=== PATIENT | female | born 1945 | race Caucasian/White ===

== ENCOUNTER 2017-09-14 22:44 | Inpatient (IN) | payer OTHER ==
--- NOTE | 2017-09-14 23:16 | EDPHY ---
H & P Stated Complaint: ONGOING ABD PAIN,GAS PAIN, CONSTIPATION. BEEN WORKED UP IN PAST Time Seen by Provider: 09/14/17 22:56 HPI/ROS: Chief Complaint: Abdominal pain HPI: 71-year-old woman is presenting with worsening abdominal pain over the last 2 days. Patient states that she has been having right upper quadrant abdominal pain for the last 3 months which has been worked up extensively by her primary care physician including CT scans, ultrasounds and lab tests. They have been unable to identify a cause of her pain but she states that has been progressively improving and she did not have any discomfort a week ago. For the last couple days she has been having worsening abdominal pain, primarily in the lower abdomen with some radiation to the right upper quadrant. She has had some nausea but no vomiting. She states she feels like croupy gas pains and she has been passing some gas but feels like she is not passing enough. She has also been constipated and having firm pebbly stools which is not new for her. She does have a history of abdominal surgery for a uterine fibroid. Denies any fevers or chills. No chest pain shortness of breath. No urinary urgency or frequency. At worst pain is a 7/10. It comes in waves. ROS: 10 point Review of Systems is negative except as noted in the HPI. PMH: Breast cancer, uterine fibroid surgery Social History: No smoking, no alcohol, no recreational drug use Family History: non-contributory Physical Exam: Gen: Awake, Alert, No Distress HEENT: Nose: no rhinorrhea Eyes: PERRLA, EOMI Mouth: Moist mucosa Neck: Supple, no JVD Chest: nontender, lungs clear to auscultation Heart: S1, S2 normal, no murmur Abd: Soft, moderate left upper , right upper and right lower quadrant tenderness , no guarding Back: no CVA tenderness, no midline tenderness Ext: no edema, non-tender Skin: no rash Neuro: CN II-XII intact, Sensation grossly intact, Strength 5/5 in bilateral upper and lower extremities - Personal History Current Tetanus/Diphtheria Vaccine: Yes Current Tetanus Diphtheria and Acellular Pertussis (TDAP): Yes - Medical/Surgical History Hx Asthma: No Hx Chronic Respiratory Disease: No Hx Diabetes: No Hx Cardiac Disease: No Hx Renal Disease: No Hx Cirrhosis: No Hx Alcoholism: No Hx HIV/AIDS: No Hx Splenectomy or Spleen Trauma: No Other PMH: BREAST CA, - Social History Smoking Status: Never smoked Constitutional: Initial Vital Signs Temperature (C) 36.9 C 09/14/17 22:47 Heart Rate 73 09/14/17 22:47 Respiratory Rate 16 09/14/17 22:47 Blood Pressure 164/60 H 09/14/17 22:47 O2 Sat (%) 96 09/14/17 22:47 O2 Delivery Mode Room Air Allergies/Adverse Reactions: penicillamine Allergy (Verified 09/14/17 22:53) Sulfa (Sulfonamide Antibiotics) Allergy (Verified 09/14/17 22:53) Home Medications: Medication Instructions Recorded Herbals/Supplements -Info Only 09/14/17 Levothyroxine Sodium [Tirosint] 70 mcg PO DAILY 09/14/17 Multivitamins [Multivitamin (*)] 09/14/17 Medical Decision Making - Diagnostics Imaging Results: CT scan of the abdomen pelvis shows a partial large bowel obstruction with a left lower quadrant mass with an apple-core appearance. There is a transition point in the distal transverse colon in the left lower quadrant. Possible that there is significant wall thickening and edema in loops of large bowel with some adjacent fat stranding. ED Course/Re-evaluation: CT scan results noted. I discussed with Dr. Yeboah, general surgery. She will consult on the patient morning. She is requesting the patient be admitted to Internal Medicine. I have discussed with Dr. Meyers. He will admit to his service for further care. - Data Points Laboratory Results: Laboratory Results 09/14/17 23:20 09/14/17 23:20 09/14/17 09/14/17 09/14/17 23:20 23:20 23:20 WBC 9.66 10^3/uL H 10^3/uL (3.80-9.50) RBC 3.92 10^6/uL L 10^6/uL (4.18-5.33) Hgb 12.9 g/dL g/dL (12.6-16.3) Hct 37.4 % L % (38.0-47.0) MCV 95.4 fL fL (81.5-99.8) MCH 32.9 pg pg (27.9-34.1) MCHC 34.5 g/dL g/dL (32.4-36.7) RDW 14.4 % % (11.5-15.2) Plt Count 278 10^3/uL 10^3/uL (150-400) MPV 10.8 fL fL (8.7-11.7) Neut % (Auto) 81.8 % H % (39.3-74.2) Lymph % (Auto) 10.0 % L % (15.0-45.0) [place] % (Auto) 7.0 % % (4.5-13.0) Eos % (Auto) 0.7 % % (0.6-7.6) Baso % (Auto) 0.3 % % (0.3-1.7) Nucleat RBC Rel Count 0.0 % % (0.0-0.2) Absolute Neuts (auto) 7.89 10^3/uL H 10^3/uL (1.70-6.50) Absolute Lymphs (auto) 0.97 10^3/uL L 10^3/uL (1.00-3.00) Absolute Monos (auto) 0.68 10^3/uL 10^3/uL (0.30-0.80) Absolute Eos (auto) 0.07 10^3/uL 10^3/uL (0.03-0.40) Absolute Basos (auto) 0.03 10^3/uL 10^3/uL (0.02-0.10) Absolute Nucleated RBC 0.00 10^3/uL 10^3/uL (0-0.01) Immature Gran % 0.2 % % (0.0-1.1) Immature Gran # 0.02 10^3/uL 10^3/uL (0.00-0.10) Sodium 134 mEq/L L mEq/L (135-145) Potassium 3.6 mEq/L mEq/L (3.5-5.2) Chloride 102 mEq/L mEq/L (97-110) Carbon Dioxide 23 mEq/l mEq/l (22-31) Anion Gap 9 mEq/L mEq/L (8-16) BUN 15 mg/dL mg/dL (7-23) Creatinine 0.7 mg/dL mg/dL (0.6-1.0) Estimated GFR > 60 Glucose 143 mg/dL H mg/dL (70-100) Calcium 9.6 mg/dL mg/dL (8.5-10.4) Total Bilirubin 0.5 mg/dL mg/dL (0.1-1.4) AST 35 IU/L IU/L (14-46) ALT 55 IU/L H IU/L (9-52) Alkaline Phosphatase 113 IU/L IU/L (38-126) Total Protein 6.7 g/dL g/dL (6.3-8.2) Albumin 4.1 g/dL g/dL (3.5-5.0) Lipase 119 IU/L IU/L (23-300) Urine Color YELLOW Urine Appearance HAZY Urine pH 7.0 (5.0-7.5) Ur Specific [place] 1.009 (1.002-1.030) Urine Protein NEGATIVE (NEGATIVE) Urine Ketones TRACE H (NEGATIVE) Urine Blood NEGATIVE (NEGATIVE) Urine Nitrate NEGATIVE (NEGATIVE) Urine Bilirubin NEGATIVE (NEGATIVE) Urine Urobilinogen NEGATIVE EU EU (0.2-1.0) Ur Leukocyte Esterase NEGATIVE (NEGATIVE) Urine Glucose NEGATIVE (NEGATIVE) Departure - Departure Disposition: [facility] Inpatient Acute Clinical Impression: Bowel obstruction, Colonic mass Condition: Fair Referrals: Faby Mcclelland MD [Primary Care Provider] - As per Instructions
[2017-09-14] MEDS ORDERED: IOPAMIDOL (ISOVUE-300) 100 ML BTL ONE (23:22)
[2017-09-14 23:25] LABS: PLATELET COUNT 278 10^3/uL (150-400)
[2017-09-15] MEDS ORDERED: oxyCODONE IR 5 MG TAB PO PRN (00:29)
--- NOTE | 2017-09-15 01:06 | PDGENHP ---
History and Physical - Chief Complaint Abdominal pain - History of Present Illness 71 yo F w/ hypothyroid and hx of treated breast CA presents with abdominal pain. Patient first noticed abdominal pain 3 days prior to presentation. Over the last couple of days this migrated to the RLQ and increased in severity. Today the pain became much worse and she presented to the ED. In the ED work-up was notable for CT scan showing large bowel obstruction from likely mass. Patient reports normal colonoscopy 8 years ago. She has had significant GI work- up recently due to RUQ pain for 4 months. This has been improving. Work-up included RUQ U/S, EUS, and CT A/P. Notably, CT A/P performed 06/11 had no evidence of current issues. History Information - Allergies/Home Medication List Allergies/Adverse Reactions: penicillamine Allergy (Verified 09/14/17 22:53) Sulfa (Sulfonamide Antibiotics) Allergy (Verified 09/14/17 22:53) Home Medications: Herbals/Supplements -Info Only 09/14/17 [Last Taken Unknown] Levothyroxine Sodium [Tirosint] 70 mcg PO DAILY 09/14/17 [Last Taken Unknown] Multivitamins [Multivitamin (*)] 09/14/17 [Last Taken Unknown] I have personally reviewed and updated: family history, medical history - Past Medical History cancer Additional medical history: Hypothyroid - Surgical History Reports: mastectomy - Family History Additional family history: Denies family hx of colon CA - Social History Smoking Status: Never smoked Review of Systems Review of Systems: ROS: 10pt was reviewed & negative except for what was stated in HPI & below Physical Exam Physical Exam: Temp Pulse Resp BP Pulse Ox 36.9 C 73 16 164/60 H 96 09/14/17 22:47 09/14/17 22:47 09/14/17 22:47 09/14/17 22:47 09/14/17 22:47 Constitutional: appears nourished, uncomfortable Eyes: PERRL, EOMI Ears, Nose, Mouth, Throat: moist mucous membranes, no oral mucosal ulcers Cardiovascular: regular rate and rhythym, no murmur, rub, or gallop Respiratory: no respiratory distress, clear to auscultation Gastrointestinal: normoactive bowel sounds, tenderness (RLQ), No guarding, No rebound, No distension Skin: warm, normal color Musculoskeletal: full muscle strength, no muscle tenderness Neurologic: AAOx3, CN II-XII Intact Psychiatric: interacting appropriately, not anxious Lab Data & Imaging Review 09/14/17 23:20 09/14/17 23:20 WBC 9.66 10^3/uL (3.80-9.50) H 09/14/17 23:20 RBC 3.92 10^6/uL (4.18-5.33) L 09/14/17 23:20 Hgb 12.9 g/dL (12.6-16.3) 09/14/17 23:20 Hct 37.4 % (38.0-47.0) L 09/14/17 23:20 MCV 95.4 fL (81.5-99.8) 09/14/17 23:20 MCH 32.9 pg (27.9-34.1) 09/14/17 23:20 MCHC 34.5 g/dL (32.4-36.7) 09/14/17 23:20 RDW 14.4 % (11.5-15.2) 09/14/17 23:20 Plt Count 278 10^3/uL (150-400) 09/14/17 23:20 MPV 10.8 fL (8.7-11.7) 09/14/17 23:20 Neut % (Auto) 81.8 % (39.3-74.2) H 09/14/17 23:20 Lymph % (Auto) 10.0 % (15.0-45.0) L 09/14/17 23:20 [place] % (Auto) 7.0 % (4.5-13.0) 09/14/17 23:20 Eos % (Auto) 0.7 % (0.6-7.6) 09/14/17 23:20 Baso % (Auto) 0.3 % (0.3-1.7) 09/14/17 23:20 Nucleat RBC Rel Count 0.0 % (0.0-0.2) 09/14/17 23:20 Absolute Neuts (auto) 7.89 10^3/uL (1.70-6.50) H 09/14/17 23:20 Absolute Lymphs (auto) 0.97 10^3/uL (1.00-3.00) L 09/14/17 23:20 Absolute Monos (auto) 0.68 10^3/uL (0.30-0.80) 09/14/17 23:20 Absolute Eos (auto) 0.07 10^3/uL (0.03-0.40) 09/14/17 23:20 Absolute Basos (auto) 0.03 10^3/uL (0.02-0.10) 09/14/17 23:20 Absolute Nucleated RBC 0.00 10^3/uL (0-0.01) 09/14/17 23:20 Immature Gran % 0.2 % (0.0-1.1) 09/14/17 23:20 Immature Gran # 0.02 10^3/uL (0.00-0.10) 09/14/17 23:20 VBG Lactic Acid 0.6 mmol/L (0.7-2.1) L 09/15/17 00:32 Sodium 134 mEq/L (135-145) L 09/14/17 23:20 Potassium 3.6 mEq/L (3.5-5.2) 09/14/17 23:20 Chloride 102 mEq/L (97-110) 09/14/17 23:20 Carbon Dioxide 23 mEq/l (22-31) 09/14/17 23:20 Anion Gap 9 mEq/L (8-16) 09/14/17 23:20 BUN 15 mg/dL (7-23) 09/14/17 23:20 Creatinine 0.7 mg/dL (0.6-1.0) 09/14/17 23:20 Estimated GFR > 60 09/14/17 23:20 Glucose 143 mg/dL (70-100) H 09/14/17 23:20 Calcium 9.6 mg/dL (8.5-10.4) 09/14/17 23:20 Total Bilirubin 0.5 mg/dL (0.1-1.4) 09/14/17 23:20 AST 35 IU/L (14-46) 09/14/17 23:20 ALT 55 IU/L (9-52) H 09/14/17 23:20 Alkaline Phosphatase 113 IU/L (38-126) 09/14/17 23:20 Total Protein 6.7 g/dL (6.3-8.2) 09/14/17 23:20 Albumin 4.1 g/dL (3.5-5.0) 09/14/17 23:20 Lipase 119 IU/L (23-300) 09/14/17 23:20 Urine Color YELLOW 09/14/17 23:20 Urine Appearance HAZY 09/14/17 23:20 Urine pH 7.0 (5.0-7.5) 09/14/17 23:20 Ur Specific [place] 1.009 (1.002-1.030) 09/14/17 23:20 Urine Protein NEGATIVE (NEGATIVE) 09/14/17 23:20 Urine Ketones TRACE (NEGATIVE) H 09/14/17 23:20 Urine Blood NEGATIVE (NEGATIVE) 09/14/17 23:20 Urine Nitrate NEGATIVE (NEGATIVE) 09/14/17 23:20 Urine Bilirubin NEGATIVE (NEGATIVE) 09/14/17 23:20 Urine Urobilinogen NEGATIVE EU (0.2-1.0) 09/14/17 23:20 Ur Leukocyte Esterase NEGATIVE (NEGATIVE) 09/14/17 23:20 Urine Glucose NEGATIVE (NEGATIVE) 09/14/17 23:20 Imaging Review: Imaging Impressions Abdomen CT 09/14/17 23:10 Impression: 1. Findings highly concerning for large bowel obstruction secondary to a mass in the distal transverse colon. 2. Wall thickening, edema and free fluid adjacent to the proximal transverse colon is suspicious for focal ischemia and/or colitis. 3. No free air. 4. Mild to moderate biliary ductal dilation. No definite obstructing lesion is identified, however, there is significant mass effect on the duodenum by the adjacent dilated large bowel. 5. Right infrahilar hypodense nodule, likely an enlarged lymph node. 6. Indeterminate left adrenal nodule. Recommend CT or MRI adrenal mass protocol when appropriate. Dr. Perez discussed these findings by telephone with Ashutosh Mariano M.D. at 0004 hours and with Aida Love M.D. at [id number] hours on 09/15/2017. Assessment & Plan Assessment: 71 yo F w/ hx of hypothyroid and breast CA presents with abdominal pain and found to have large bowel obstruction from likely colonic mass. Plan: 1. Large bowel obstruction - From likely mass in the distal transverse colon per radiology. Notably this was not seen on CT A/P performed on 06/11. Wall thickening, edema, and free fluid adjacent to the proximal transverse colon is suspicious for focal ischemia and/or colitis. - Surgery consulted, appreciate assistance - Check lactate - Maintain NPO, mIVF - Oncology consult in the AM - Pain control w/ oxycodone and morphine PRN 2. Mild to moderate biliary ductal dilatation - Incidentally found on CT on admission; LFTs not consistent w/ biliary obstruction noting normal bilirubin. This finding also mentioned on 06/11 scan so of unclear significance. 3. Indeterminate left adrenal nodule - CT or MRI for further evaluation when appropriate. 4. Hx of breast CA - Treated with mastectomy, radiation, and chemotherapy in 2000. 5. Hypothyroid - Continue patient's LTX Diet - NPO, mIVF w/ K Code - Full Ppx - SCDs, indicated for LMWH noting hx of malignancy but will hold noting possibility of surgery Dispo - Admit under observation status
[2017-09-15] MEDS: oxyCODONE IR 5 MG TAB PO PRN ×2 (01:53→06:05)
[2017-09-15] MEDS: NS W/ 20 KCl/L 1,000 ML IV SCH ×2 (02:33→23:00)
[2017-09-15] MEDS: ONDANSETRON 4 MG/2 ML VIAL IVP PRN ×2 (03:26→08:17)
[2017-09-15 05:03] LABS: PLATELET COUNT 235 10^3/uL (150-400)
[2017-09-15] MEDS ORDERED: PROTOCOL MAGNESIUM 1 DOSE IV PRN (08:34)
[2017-09-15] MEDS ORDERED: PROTOCOL POTASSIUM 1 DOSE MISC PRN (08:34)
[2017-09-15] MEDS ORDERED: LEVOTHYROXINE SODIUM PO SCH (09:00)
[2017-09-15] MEDS ORDERED: TEMAZEPAM 15 MG CAP PO PRN (09:05)
[2017-09-15] MEDS: LEVOTHYROXINE SODIUM 75 MCG PO SCH (10:15)
--- NOTE | 2017-09-15 10:22 | HOSPPROG ---
Hospitalist Progress Note Assessment/Plan: 71 yo F w/ hx of hypothyroid and breast CA presents with abdominal pain and found to have large bowel obstruction from likely colonic mass. 1. Large bowel obstruction - From likely mass in the distal transverse colon per radiology. Notably this was not seen on CT A/P performed on 06/11. Wall thickening, edema, and free fluid adjacent to the proximal transverse colon is suspicious for focal ischemia and/or colitis. - Surgery consulted, appreciate assistance - Normal Lactate - NPO, IVF - Oncology to consult - Pain control w/ oxycodone and morphine PRN 2. Mild to moderate biliary ductal dilatation - Incidentally found on CT on admission; LFTs not consistent w/ biliary obstruction noting normal bilirubin. This finding also mentioned on 06/11 scan so of unclear significance. 3. Indeterminate left adrenal nodule - CT or MRI for further evaluation when appropriate. 4. Hx of breast CA - Treated with mastectomy, radiation, and chemotherapy in 2000. 5. Hypothyroid - Continue patient's LTX 6. Hypokalemia, will replace with protocol as well as IVF w/ K Diet - NPO, mIVF w/ K Code - Full Ppx - SCDs, indicated for LMWH noting hx of malignancy but will hold noting possibility of surgery Dispo: Change to inpatient status. Subjective: Pain is better controlled. Had some sedation with pain meds but doing better after decreasing. Awaiting surgery consult. Objective: Vital Signs Temp Pulse Resp BP Pulse Ox 36.6 C 65 18 118/51 L 97 09/15/17 07:59 09/15/17 07:59 09/15/17 07:59 09/15/17 07:59 09/15/17 07:59 Laboratory Results 09/15/17 04:52 09/15/17 04:52 09/14/17 09/15/17 09/16/17 05:59 05:59 05:59 Intake Total 154 187 Output Total 450 Balance 154 -263 - Physical Exam Constitutional: no apparent distress Eyes: PERRL, EOMI Ears, Nose, Mouth, Throat: moist mucous membranes, hearing normal Cardiovascular: regular rate and rhythym Respiratory: no respiratory distress Gastrointestinal: distension, other (Hypoactive BS, mild distention), No normoactive bowel sounds, No tenderness Skin: warm Neurologic: AAOx3 Psychiatric: interacting appropriately, not anxious, not encephalopathic Lymph, Heme, Immunologic: No petechiae ICD10 Worksheet Patient Problems: Problems Problem Status Onset Bowel obstruction Acute Colonic mass Acute
--- NOTE | 2017-09-15 15:40 | GCON ---
[f rep st] CONSULTATION ONCOLOGY CONSULT REFERRING PHYSICIAN: Mike Meyers MD REASON FOR CONSULTATION: Abdominal mass. HISTORY OF PRESENT ILLNESS: The patient is a 71-year-old woman with a history of breast cancer diagn osed in 2000. I do not know the stage, but it was fairly advanced, and she required a mastectomy and chemotherapy. Further details below. She has been having some GI difficulties over the last 4 sabrina hs or so, at least in April. This started after a chest viral infection, and most of her discomfor t is in the right upper quadrant. She had an abdominal ultrasound and abdominopelvic CT, which were unremarkable. Things actually slowly improved without really any treatment. She had a colonoscopy 8 years ago, which was normal. She is followed by an oncologist. I believe she was followed by Dr. Miladis jaramillo and recently was seen by I believe a PA, Mary. At the time, there was no evidence that the b reast cancer had recurred. She seemed to be doing better up until this weekend when she began having abdominal pain, mostly a cramping, gas-like pain. Different positions, she was able to pass some ga s and get some relief, up until last night when the pain was very severe. She did not have any nause a or vomiting. She reports there has been a change in her bowel habits, more constipation, but no bl ood in her stool. She has lost maybe about 10-15 pounds. She had no other constitutional symptoms. She came to the emergency room, and the CT scan showed findings concerning for a large bowel obstruc tion, possibly mass in the distal transverse colon. There is also wall thickening, edema and free fl uid adjacent to the proximal transverse colon, which is also suspicious for focal ischemia or colitis . There is no free air and some mild biliary duct dilatation, but no obstruction or mass. There is mass effect on the duodenum, however, and there is an indeterminate left adrenal node, and there may be an enlarged lymph node in the right infrahilar. She has been admitted to the hospital, and she oliver s not met a surgeon yet. She was able to pass some gas later today with changing positions. ALLERGIES: She is allergic to sulfa and penicillamine. HOME MEDICATIONS: Include carboxymethylcellulose 1%, Refresh eye drops, temazepam, herbal supplement s, Percocet as needed, multivitamin, and levothyroxine. PAST MEDICAL HISTORY: 1. Chronic illnesses include breast cancer diagnosed in 2000 in the left breast, presented with a ma ss and nipple retraction. Normal mammogram and ultrasound. She had 2 cycles of chemotherapy with CA F, followed by mastectomy, followed by 4 more cycles of CAF. This was followed by, I believe, 4 more cycles of Taxotere. She then had postmastectomy radiation, and then was on anastrozole for about 5 years and then letrozole for another 10 years. She stopped all hormone therapy, December 2016. 2. Hypothyroidism. PAST SURGICAL HISTORY: 1. Includes mastectomy. 2. Fibroids. 3. Axillary mass that turned out to be hidradenitis. 4. Tonsillectomy. 5. Appendectomy. SOCIAL HISTORY: She only drinks alcohol occasionally and does not smoke. She previously worked as a store facility technician and hematology tech. She is . FAMILY HISTORY: Mother at 103. No cancer. Father had hairy cell leukemia and then from l danae cancer. She has a brother with no history of cancer. She has never been . REVIEW OF SYSTEMS: Ten-point review of systems performed. Pertinent positives in the HPI, otherwise negative. PHYSICAL EXAM: VITAL SIGNS: Temperature is 36.8, pulse 62. Blood pressure is 140/70. GENERAL: Sh e is a little bit animated, but well-appearing woman in no distress. HEENT: Sclerae nonicteric. Or al mucosa is unremarkable. LUNGS: Clear. CARDIAC: Regular, without murmur. ABDOMEN: Soft, but s he has a fullness in the left upper quadrant that is mildly tender. No rebound or guarding. Bowel s ounds are decreased throughout. LYMPHATIC: Gregory exam reveals no peripheral lymphadenopathy. NEURO : Grossly intact. LABS: White count was slightly elevated on admission. Hemoglobin is 12.9. Today is 11.8. Platelet count was normal. Chemistries and LFTs were unremarkable. IMPRESSION: 1. Large bowel obstruction from possible mass. 2. History of breast cancer, currently no evidence of disease. It is suspicious for a mass, and if so, the most likely etiology would be a primary colon cancer. I explained to her that timing and type of surgery will be dependent on what the surgeon finds. Most p atients are able to have a partial colectomy with reattachment if this is a straightforward colon can cer. Other possibilities in the differential include cancer spread to the area, which is unusual, or localized abscess, such as diverticulitis, but there is no free air in the region. Most patients wi th this sort of presentation would benefit from adjuvant chemotherapy, but I explained to her until w e get more information, I cannot determine this at this time. I answered her and her 's quest ions. They particularly were interested in why the CT was read as normal back in May. I agreed with submitting this to our radiologist and see if there is anything that had changed between the tw o, but at this point, I did not have a good answer for them. /[id number]/MODL
--- NOTE | 2017-09-15 15:56 | ASMTCMCOM ---
CM Note CM Note Notes: Patient admitted with abdominal pain, found to have a large bowel obstruction secondary to a possible colon mass. She has a history of breast cancer that was treated in 2000. Surgery to see regarding exploration of the mass. Patient lives with her and is normally independent. No therapies have been ordered, but we will follow her for any potential discharge planning needs. Date Signed: 09/15/2017 03:55 PM Electronically Signed By:Jacqueline Herrmann RN
--- NOTE | 2017-09-15 16:54 | PDMN ---
Medical Necessity Medical necessity: Change to IP, as of 09/15/17, per MD; los >2 mn for ongoing management of large bowel obstruction likely r/t colonic mass; admit for further workup/monitoring, Surgery/Oncology consult, IVFs, IV pain control/ antiemetics; hx breast cancer; per progress note & order 09/15/17
[2017-09-15] MEDS ORDERED: POTASSIUM CL 10 MEQ TAB PO ONE (19:18)
--- NOTE | 2017-09-15 21:33 | SOAPPROG ---
[facility] Progress Note Assessment/Plan: Assessment/Plan: 71yo F admitted with abdominal pain, found to have obstructing distal transverse colon mass Formal consult note to follow Plan OR Sunday 09/[address] Yeboah Objective: Vital Signs Temp Pulse Resp BP Pulse Ox 36.9 C 67 16 148/86 H 94 09/15/17 19:53 09/15/17 19:53 09/15/17 19:53 09/15/17 19:53 09/15/17 19:53 Laboratory Results 09/15/17 17:59 09/14/17 09/15/17 09/16/17 05:59 05:59 05:59 Intake Total 2094 Output Total 1220 Balance 874 ICD10 Worksheet Patient Problems: Problems Problem Status Onset Bowel obstruction Acute Colonic mass Acute
[2017-09-16] MEDS: LEVOTHYROXINE SODIUM 75 MCG PO SCH (04:30)
[2017-09-16] MEDS ORDERED: POTASSIUM Cl (KCl) 100 ML IV SCH (09:45)
--- NOTE | 2017-09-16 12:03 | HOSPPROG ---
Hospitalist Progress Note Assessment/Plan: 71 yo F w/ hx of hypothyroid and breast CA presents with abdominal pain and found to have large bowel obstruction from likely colonic mass. 1. Large bowel obstruction - From likely mass in the distal transverse colon per radiology. Notably this was not seen on CT A/P performed on 06/11. Wall thickening, edema, and free fluid adjacent to the proximal transverse colon is suspicious for focal ischemia and/or colitis. - Surgery consulted --> Colectomy on Wednesday - Normal Lactate - Clears. Will decrease IVF today given some oral intake. - Oncology consulted - Pain control w/ oxycodone and morphine PRN 2. Mild to moderate biliary ductal dilatation - Incidentally found on CT on admission; LFTs not consistent w/ biliary obstruction noting normal bilirubin. This finding also mentioned on 06/11 scan so of unclear significance. 3. Indeterminate left adrenal nodule - CT or MRI for further evaluation when appropriate. 4. Hx of breast CA - Treated with mastectomy, radiation, and chemotherapy in 2000. 5. Hypothyroid - Continue patient's LTX 6. Hypokalemia, will replace with protocol as well as IVF w/ K 7. Weakness and Debility? consult PT/Ot Diet - Clears until midnight, mIVF w/ K Code - Full Ppx - SCDs, indicated for LMWH noting hx of malignancy but will hold noting possibility of surgery Dispo: Inpatient Subjective: tolerating clears, but less PO than usual. Passing gas. Pain is well controlled. no Resp issues. Objective: Vital Signs Temp Pulse Resp BP Pulse Ox 36.8 C 67 18 137/59 H 94 09/16/17 11:45 09/16/17 11:45 09/16/17 11:45 09/16/17 11:45 09/16/17 11:45 Laboratory Results 09/16/17 04:33 09/15/17 09/16/17 09/17/17 05:59 05:59 05:59 Intake Total 2944 Output Total 1820 1200 Balance 1124 -1200 - Physical Exam Constitutional: no apparent distress Eyes: PERRL, EOMI Ears, Nose, Mouth, Throat: moist mucous membranes, hearing normal Cardiovascular: regular rate and rhythym, No edema Respiratory: no respiratory distress, no rales or rhonchi Gastrointestinal: other (decreased bowel sounds, distention, no TTP), No normoactive bowel sounds Genitourinary: no bladder fullness Skin: warm Neurologic: AAOx3 Psychiatric: interacting appropriately, not anxious, not encephalopathic ICD10 Worksheet Patient Problems: Problems Problem Status Onset Bowel obstruction Acute Colonic mass Acute
--- NOTE | 2017-09-16 13:15 | SOAPPROG ---
GINA Progress Note Assessment/Plan: Subjective: Pt is feeling well and motivated to go to to surgery tomorrow, although is she anxious about the prospect of an ostomy. She is using a spirometer and taking walks to "get strong" for surgery. Objective: Patient is alert and oriented, thin, well developed and ambulating appropriately. Assessment: Obstructing colon mass in LUQ to OR tomorrow. Plan: Fleet enema this afternoon Continue clear liquid diet until 11am tomorrow afternoon, then NPO. OR tomorrow at 2pm for transverse colectomy with possible ostomy 09/16/17 12:25 Objective: Vital Signs Temp Pulse Resp BP Pulse Ox 36.8 C 67 18 137/59 H 94 09/16/17 11:45 09/16/17 11:45 09/16/17 11:45 09/16/17 11:45 09/16/17 11:45 Laboratory Results 09/16/17 04:33 09/15/17 09/16/17 09/17/17 05:59 05:59 05:59 Intake Total 2944 Output Total 1820 1200 Balance 1124 -1200 ICD10 Worksheet Patient Problems: Problems Problem Status Onset Bowel obstruction Acute Colonic mass Acute
--- NOTE | 2017-09-16 14:34 | SOAPPROG ---
SOAP Progress Note Assessment/Plan: * Probable colon mass: agree with Dr. Yeboah to go to surgery. Suspecting colon cancer. Further therapy will depend on path findings * H/O stage III breast cancer: currently KARUNA Subjective: Feeling well. Taking fluids. Surgery tomorrow. Objective: Vital Signs Temp Pulse Resp BP Pulse Ox 36.8 C 67 18 137/59 H 94 09/16/17 11:45 09/16/17 11:45 09/16/17 11:45 09/16/17 11:45 09/16/17 11:45 Laboratory Results 09/16/17 04:33 09/15/17 09/16/17 09/17/17 05:59 05:59 05:59 Intake Total 2944 Output Total 1820 1200 Balance 1124 -1200 Physical Exam - Physical Exam General Appearance: no apparent distress Abdomen: soft, mass (LUQ) ICD10 Worksheet Patient Problems: Problems Problem Status Onset Bowel obstruction Acute Colonic mass Acute
--- NOTE | 2017-09-16 17:06 | ASMTCMCOM ---
CM Note CM Note Notes: Discussed w/hospitalist; plan is for pt to go for surgery tomorrow. CM will follow post-op. Date Signed: 09/16/2017 05:06 PM Electronically Signed By:Claudine Hernandez RN
[2017-09-16] MEDS: NS W/ 20 KCl/L 1,000 ML IV SCH (22:19)
[2017-09-17] MEDS ORDERED: ERTAPENEM 1 GM VIAL IV ONE (08:04)
[2017-09-17] MEDS: LEVOTHYROXINE SODIUM 75 MCG PO SCH (08:19)
--- NOTE | 2017-09-17 09:47 | SOAPPROG ---
SOAP Progress Note Assessment/Plan: Assessment/Plan: 71yo F admitted with abdominal pain, found to have obstructing distal transverse colon mass To OR today for lap assist poss open transverse colectomy with possible ostomy IV antibiotics OCTOR NPO after midnight Consent in chart Seen by Dr. Yeboah Objective: Vital Signs Temp Pulse Resp BP Pulse Ox 37.1 C 72 15 142/64 H 92 09/17/17 07:50 09/17/17 07:50 09/17/17 07:50 09/17/17 07:50 09/17/17 07:50 Laboratory Results 09/16/17 04:33 09/16/17 09/17/17 09/18/17 05:59 05:59 05:59 Intake Total 2944 3119 600 Output Total 6630 5770 1100 Balance 1124 -1831 -500 ICD10 Worksheet Patient Problems: Problems Problem Status Onset Bowel obstruction Acute Colonic mass Acute
[2017-09-17] MEDS ORDERED: levOFLOXACIN 500 MG/DEXTROSE 100 ML IV ONE (10:43)
--- NOTE | 2017-09-17 11:55 | HOSPPROG ---
Hospitalist Progress Note Assessment/Plan: 71 yo F w/ hx of hypothyroid and breast CA presents with abdominal pain and found to have large bowel obstruction from likely colonic mass. 1. Large bowel obstruction - From likely mass in the distal transverse colon per radiology. Notably this was not seen on CT A/P performed on 06/11. Wall thickening, edema, and free fluid adjacent to the proximal transverse colon is suspicious for focal ischemia and/or colitis. - Surgery consulted --> Colectomy today - Normal Lactate - NPO, IVF - Oncology following - Pain control w/ oxycodone and morphine PRN 2. Mild to moderate biliary ductal dilatation - Incidentally found on CT on admission; LFTs not consistent w/ biliary obstruction noting normal bilirubin. This finding also mentioned on 06/11 scan so of unclear significance. 3. Indeterminate left adrenal nodule - CT or MRI for further evaluation when appropriate. 4. Hx of breast CA - Treated with mastectomy, radiation, and chemotherapy in 2000. 5. Hypothyroid - Continue patient's LTX 6. Hypokalemia, refusing replacement 7. Weakness and Debility? consult PT/Ot Diet - NPO, mIVF w/ K Code - Full Ppx - SCDs Dispo: Inpatient Subjective: refusing K and K replacement protocol. Surgery today. Objective: Vital Signs Temp Pulse Resp BP Pulse Ox 37.1 C 72 15 142/64 H 92 09/17/17 07:50 09/17/17 07:50 09/17/17 07:50 09/17/17 07:50 09/17/17 07:50 Laboratory Results 09/16/17 04:33 09/16/17 09/17/17 09/18/17 05:59 05:59 05:59 Intake Total 2944 3119 600 Output Total 2380 6426 1100 Balance 1124 -1831 -500 - Time Spent With Patient Time Spent with Patient: greater than 35 minutes Time Spent with Patient: Greater than 35 minutes spent on this patients care, greater than 50% of time spent counseling, educating, and coordinating care regarding the above mentioned plan. - Physical Exam Constitutional: no apparent distress Eyes: PERRL Ears, Nose, Mouth, Throat: moist mucous membranes, hearing normal Cardiovascular: regular rate and rhythym, no murmur, rub, or gallop Respiratory: no respiratory distress Gastrointestinal: distension Skin: warm Musculoskeletal: full muscle strength Neurologic: AAOx3 Psychiatric: interacting appropriately, not anxious, not encephalopathic, thought process linear Lymph, Heme, Immunologic: No petechiae ICD10 Worksheet Patient Problems: Problems Problem Status Onset Bowel obstruction Acute Colonic mass Acute
--- NOTE | 2017-09-17 12:10 | SOAPPROG ---
SOAP Progress Note Assessment/Plan: * Probable colon mass: Dr. Yeboah taking her to surgery today. Suspecting colon cancer. Further therapy will depend on path findings * H/O stage III breast cancer: currently KARUNA I spent >35 min with patient and . Subjective: Scheduled for surgery today. No complaints. Reviewed old and new CT with patient and . He had several questions. Objective: Vital Signs Temp Pulse Resp BP Pulse Ox 37.1 C 72 15 142/64 H 92 09/17/17 07:50 09/17/17 07:50 09/17/17 07:50 09/17/17 07:50 09/17/17 07:50 Laboratory Results 09/16/17 04:33 09/16/17 09/17/17 09/18/17 05:59 05:59 05:59 Intake Total 2944 3110 600 Output Total 7658 1287 1100 Balance 1124 -1831 -500 Physical Exam - Physical Exam General Appearance: no apparent distress Abdomen: hernia, mass ICD10 Worksheet Patient Problems: Problems Problem Status Onset Bowel obstruction Acute Colonic mass Acute
--- NOTE | 2017-09-17 13:04 | GCON ---
[f rep st] CONSULTATION REASON FOR CONSULTATION: Transverse colon mass. HISTORY OF PRESENT ILLNESS: Carin is a 71-year-old woman with a history of breast cancer who presented to the emergency room complaining of abdominal pain. She reported the pain was similar to gas pains that had been increasing in severity over the past 4 days. She denied any nausea or vomiting. She was passing gas and having bowel movements up until the time of presentation to the emergency room. She reports chronic constipation which has been worsening over the past several months. In addition, she complained of a 10 pound weight loss over the past year. In the emergency room, a CT scan was obtained which showed a 2.3 x 2.6 cm mass of the distal sigmoid colon associated with wall thickening , edema and adjacent fat stranding. There were also findings consistent with large bowel obstruction secondary to this mass. When asked about her gastrointestinal issues over the past year, she reported having right upper quadrant pain since at least May of 2017. She had an abdominal CT and ultrasound which were unremarkable. The patient's had brought these discs with him to the hospital, which we will have loaded into our PACS system. In addition, she had an EUS performed which was negative. At this time, her pain is well controlled. She is not having any nausea. She has not passed any gas yet this morning, but does not feel bloated or distended. She denies fevers or chills. PAST MEDICAL HISTORY: Breast cancer in 2000 of the left breast treated with mastectomy, chemo and radiation, hypothyroidism. PAST SURGICAL HISTORY: Left mastectomy, fibroidectomy of the uterus, tonsillectomy, appendectomy. ALLERGIES: Sulfa, penicillamine. SOCIAL HISTORY: She is . She reports occasional alcohol use. Denies tobacco or recreational drug use. FAMILY HISTORY: Her father had leukemia and lung cancer. No other family history of cancers. REVIEW OF SYSTEMS: A 10-point review of systems negative aside from that mentioned in the HPI. PHYSICAL EXAM: GENERAL: No acute distress. Comfortable. at bedside. HEENT: Normocephalic, atraumatic. No hearing deficits. Pupils equal and round. No scleral icterus. Mucous membranes moist. NECK: Trachea midline. RESPIRATORY: Clear to auscultation bilaterally. No increased work of breathing. CARDIOVASCULAR: Regular rate and rhythm. No peripheral edema. ABDOMEN: Soft, normoactive bowel sounds heard throughout. Mildly distended in the upper abdomen with palpable fullness of the transverse colon, tender to palpation of the right upper quadrant and left upper quadrant. No rebound or guarding. No peritoneal signs. NEUROLOGIC: Grossly intact. PSYCHIATRIC: Pressured speech, quite anxious. IMPRESSION AND PLAN: a 71-year-old woman with a mass of the distal transverse colon associated with findings of obstruction. This is very suspicious for a colon cancer. We discussed surgical intervention including transverse colectomy with possible diverting ostomy. She understands that, if she become more symptomatic from obstructive symptoms, that she would require diverting ostomy. We discussed risks of surgery, including but not limited to, heart attack, stroke, blood clots or . We discussed risk of infection, bleeding, damage to surrounding structures, anastomotic leak, need for additional procedures. She understands the risks and would like to proceed. In addition, we will submit her previous imaging to our radiology department to be uploaded into the PACS system. Surgery planned for Wednesday09/17/2017. The patient was additionally evaluated by Dr. Aida Yeboah, who agrees with the above impression and plan. We appreciate hospitalist and oncology management. We will continue to follow the patient following surgery. I saw and evaluated Ms. Cooper. I reviewed her scans. I spent over 60 minutes discussing the findings with the patient, her , Dr. Calvo and Dr. Mccarthy. She has a fullness in her upper abdomen. She has a near obstructing colon mass. We will proceed with lap possible open transverse colectomy with possible ostomy. Risks and benefits were discussed. /[id number]/MODL MTDD
[2017-09-17] MEDS ORDERED: LIDOCAINE 1% 2 ML INJ ID PRN (13:18)
[2017-09-17] MEDS ORDERED: LR 1,000 ML IV ONE (13:18)
[2017-09-17] MEDS ORDERED: BUPIVACAINE 0.5% 10 ML SDV ONE (13:32)
[2017-09-17] MEDS: ONDANSETRON 4 MG/2 ML VIAL IVP PRN ×2 (13:40→22:32)
[2017-09-17] MEDS ORDERED: MIDAZOLAM 2 MG/2 ML VIAL IVP ONE (13:55)
--- NOTE | 2017-09-17 13:58 | PDANEPAE ---
ANE History of Present Illness jayshree-colectomy for transverse colon mass ANE Past Medical History - Pulmonary History Hx Oxygen in Use at Home: No Hx Sleep Apnea: No Sleep Apnea Screening Result - Last Documented: Negative - Endocrine History Hx Diabetes: No Hypothyroid: Yes - Chronic Pain History Chronic Pain: No ANE Review of Systems Review of Systems: - Exercise capacity Exercise capacity: >=4 METS ANE Patient History - Allergies Allergies/Adverse Reactions: penicillamine Allergy (Severe, Verified 09/17/17 09:13) Anaphylaxis Sulfa (Sulfonamide Antibiotics) Allergy (Severe, Verified 09/17/17 09:13) Anaphylaxis - Home Medications Home medications: home medication list seen and reviewed Home Medications: Levothyroxine Sodium [Tirosint] 75 mcg PO DAILY 09/14/17 [Last Taken 09/14/17] Carboxymethylcellulose 1% [Refresh Celluvisc (*)] 1 howie EACHEYE Q1 PRN 09/15/17 [Last Taken Unknown] Herbals/Supplements -Info Only 1 ea PO DAILY 09/15/17 [Last Taken 09/14/17] Multivitamins [Multivitamin (*)] 1 each PO DAILY 09/15/17 [Last Taken 09/14/17] Temazepam [Restoril 15 MG (*)] 15 mg PO HSPRN PRN 09/15/17 [Last Taken Unknown] oxyCODONE/APAP 5/325 [Percocet 5/325 (*)] 0.5 tab PO Q4H PRN 09/15/17 [Last Taken Unknown] - NPO status NPO Since - Liquids (Date): 09/17/17 NPO Since - Liquids (Time): 00:00 NPO Since - Solids (Date): 09/14/17 NPO Since - Solids (Time): 12:00 - Anes Hx Anes Hx: post operative nausea and vomiting - Smoking Hx Smoking Status: Never smoked - Alcohol Use Alcohol Use: Rarely - Family Anes Hx Family Anes Hx: none ANE Labs/Vital Signs - Labs Result Diagrams: 09/15/17 04:52 09/16/17 04:33 - Vital Signs Blood Pressure: 173/72 Heart Rate: 71 Respiratory Rate: 16 O2 Sat (%): 99 Height: 160.02 cm Weight: 56.699 kg ANE Physical Exam - Airway Mallampati Score: Class 2 Mouth exam: small mouth opening - Pulmonary Pulmonary: no respiratory distress - Cardiovascular Cardiovascular: regular rate and rhythym - ASA Status ASA Status: II ANE Anesthesia Plan Anesthesia Plan: general endotracheal anesthesia
[2017-09-17] MEDS ORDERED: PROPOFOL/EMULSION 500 MG/50 ML BOTTLE IV ONE ×2 (14:09→16:08)
[2017-09-17] MEDS ORDERED: ONDANSETRON 4 MG/2 ML VIAL ONE (14:10)
[2017-09-17] MEDS ORDERED: DEXAMETHASONE 4 MG/ML VIAL ONE ×2 (14:10)
[2017-09-17] MEDS ORDERED: ROCURONIUM 50 MG/5 ML VIAL ONE (14:10)
[2017-09-17] MEDS ORDERED: LIDOCAINE 2% 100 MG/5 ML SYR ONE (14:10)
[2017-09-17] MEDS ORDERED: LIDOCAINE HCL 160 MG/4 ML LTA KIT TP ONE (14:11)
[2017-09-17] MEDS ORDERED: PHENYLEPHRINE HCL 100 MCG/ML SYR ONE (14:33)
[2017-09-17] MEDS ORDERED: SUGAMMADEX SODIUM 200 MG/2 ML VIAL IVP ONE (17:44)
--- NOTE | 2017-09-17 17:58 | POSTOPPROG ---
Post Op Note Date of Operation: 09/17/17 Surgeon: Aida Yeboah Supervisor Forming Department: [facility] Anesthesiologist: mingo Anesthesia: GET(General Endotracheal) Pre-op Diagnosis: Transverse colon mass, obstruction Post-op Diagnosis: same Indication: 71yo F with obstructive transverse colon mass, suspicious for ca Procedure: lap assist transverse colectomy with repair of LLQ ventral hernia Findings: incarcerated LLQ hernia. Palpable intraluminal mass of transverse colon. Inf/Abcess present in the surg proc area at time of surgery?: No EBL: Minimal
[2017-09-17] MEDS ORDERED: PROMETHAZINE HCL 25 MG/ML INJ IVP PRN ×2 (18:01→18:17)
[2017-09-17] MEDS ORDERED: DEXAMETHASONE 4 MG/ML VIAL IVP PRN (18:17)
[2017-09-17] MEDS ORDERED: OXYCODONE/APAP 5/325 TAB PO PRN (18:17)
[2017-09-17] MEDS ORDERED: LABETALOL HCL 5 MG/ML 20 ML MDV IVP PRN (18:17)
[2017-09-17] MEDS ORDERED: NALOXONE HCL 0.4 MG/ML INJ IVP PRN (18:17)
[2017-09-17] MEDS ORDERED: ONDANSETRON 4 MG/2 ML VIAL IVP PRN (18:17)
[2017-09-17] MEDS ORDERED: LR 500 ML IV PRN (18:17)
[2017-09-17] MEDS ORDERED: ALBUTEROL 3 ML DEYVIAL IH PRN (18:17)
[2017-09-17] MEDS ORDERED: PHENYLEPHRINE HCL 100 MCG/ML SYR IVP PRN (18:17)
--- NOTE | 2017-09-17 18:22 | POSTANESTH ---
Post Anesthetic Evaluation Cardiovascular Status: Normal, Stable Respiratory Status: Normal, Stable Level of Consciousness/Mental Status: Can Participate in Eval Pain Control: Adequate, Prn Tx Ordered Nausea/Vomiting Control: Adequate, Prn Tx Ordered Complications Possibly Related to Anesthesia: None Noted
[2017-09-18] MEDS: LEVOTHYROXINE SODIUM 75 MCG PO SCH (04:27)
[2017-09-18 04:59] LABS: PLATELET COUNT 217 10^3/uL (150-400)
[2017-09-18] MEDS: ONDANSETRON 4 MG/2 ML VIAL IVP PRN (06:14)
--- NOTE | 2017-09-18 07:30 | SOAPPROG ---
SOMARKY Progress Note Assessment/Plan: Assessment: * Probable colon mass: Dr. Yeboah taking her to surgery today. Suspecting colon cancer. Further therapy will depend on path findings * H/O stage III breast cancer: currently KARUNA post op, appears comfortable Plan:Review operative findings and path when available 09/18/17 07:28 Objective: Vital Signs Temp Pulse Resp BP Pulse Ox 98.6 F 74 18 148/71 H 94 09/18/17 04:34 09/18/17 04:34 09/18/17 04:34 09/18/17 04:34 09/18/17 04:34 Laboratory Results 09/18/17 04:27 09/18/17 04:27 09/17/17 09/18/17 09/19/17 05:59 05:59 05:59 Intake Total 0995 6260 Output Total 6749 1161 Balance -1831 -333 ICD10 Worksheet Patient Problems: Problems Problem Status Onset Bowel obstruction Acute Colonic mass Acute
--- NOTE | 2017-09-18 11:06 | HOSPPROG ---
Hospitalist Progress Note Assessment/Plan: 71 yo F w/ hx of hypothyroid and breast CA presents with abdominal pain and found to have large bowel obstruction from likely colonic mass. 1. Large bowel obstruction - From likely mass in the distal transverse colon per radiology. Notably this was not seen on CT A/P performed on 06/11. Wall thickening, edema, and free fluid adjacent to the proximal transverse colon is suspicious for focal ischemia and/or colitis. - Surgery consulted --> Colectomy 09/17 -->incarcerated LLQ Hernia, intraluminal mass of transverse colon - NPO, IVF - Oncology following 2. Mild to moderate biliary ductal dilatation - Incidentally found on CT on admission; LFTs not consistent w/ biliary obstruction noting normal bilirubin. This finding also mentioned on 06/11 scan so of unclear significance. 3. Indeterminate left adrenal nodule - CT or MRI for further evaluation when appropriate. 4. Hx of breast CA - Treated with mastectomy, radiation, and chemotherapy in 2000. 5. Hypothyroid - Continue patient's LTX 6. Hypokalemia, replacing 7. Weakness and Debility? PT/OT Diet - NPO, mIVF w/ K Code - Full Ppx - SCDs Dispo: Inpatient Plan: Increase IVF today, add additional K Diet per surgery, currently NPO. Decrease IVF once tolerating good PO Await Path Pain meds as ordered, nurse notified PT/OT Subjective: c/o abd pain. wants IV Morphine. NPO Objective: Vital Signs Temp Pulse Resp BP Pulse Ox 37.1 C 66 16 125/54 H 96 09/18/17 08:30 09/18/17 08:30 09/18/17 08:30 09/18/17 08:30 09/18/17 08:30 Laboratory Results 09/18/17 04:27 09/18/17 04:27 09/17/17 09/18/17 09/19/17 05:59 05:59 05:59 Intake Total 3119 2067 Output Total 0603 7860 Balance -5371 -815 - Physical Exam Constitutional: no apparent distress Eyes: PERRL, EOMI Ears, Nose, Mouth, Throat: moist mucous membranes, hearing normal Cardiovascular: regular rate and rhythym, No edema Respiratory: no respiratory distress, no rales or rhonchi Gastrointestinal: distension (mild), No normoactive bowel sounds (hypoactive BS) Skin: warm Neurologic: AAOx3 Psychiatric: interacting appropriately, not anxious, not encephalopathic ICD10 Worksheet Patient Problems: Problems Problem Status Onset Bowel obstruction Acute Colonic mass Acute
--- NOTE | 2017-09-18 11:41 | SOAPPROG ---
SOAP Progress Note Assessment/Plan: A/P: POD # 1 s/p transverse colectomy for near obstructing colon mass Neuro: Morphine 1-2 mg IV Q 1 hr prn pain Resp - IS Cards - monitor for hemodynamic instability GI - Awaiting bowel function to return FEN - Hypokalemia. Hospitalists have added more K to IVF. Want to keep IVF < 100 if possible so that there is less edema at anastomosis. up to 8 oz every 8 hours Meds okay Please do not advance diet PT/OT - I encouraged her NOT to use a bedpan. Can have bedside commode Subjective: Reports slept well, no nausea and used minimal Morphine O: General: Pleasant, well-nourished and well-groomed woman at bedside Lungs: Clear to auscultation bilaterally, No increased work of breathing Cardiac: Regular rate, L arm edema in sleeve. Right hand is edematous. Abdomen: Bowel sounds present, soft and nontender. Slight distension. Incisions clean dry and intact 09/16/17 12:25 09/18/17 11:35 Objective: Vital Signs Temp Pulse Resp BP Pulse Ox 37.1 C 71 18 145/77 H 93 09/18/17 08:30 09/18/17 11:13 09/18/17 11:13 09/18/17 11:13 09/18/17 11:13 Laboratory Results 09/18/17 04:27 09/18/17 04:27 09/17/17 09/18/17 09/19/17 05:59 05:59 05:59 Intake Total 6476 0477 Output Total 4185 2930 Balance -1831 -333 ICD10 Worksheet Patient Problems: Problems Problem Status Onset Bowel obstruction Acute Colonic mass Acute
[2017-09-18] MEDS ORDERED: D5W 1/2 NS W/ 20 KCl/L 1,000 ML IV SCH (11:45)
[2017-09-18] MEDS: POTASSIUM Cl (KCl) 40 MEQ in NS 1,000 ML IV SCH (14:53)
--- NOTE | 2017-09-18 15:17 | ASMTCMCOM ---
CM Note CM Note Notes: Pt is s/p transverse colectomy. PT/OT evals pending. CM will continue to follow for any d/c needs. Date Signed: 09/18/2017 03:16 PM Electronically Signed By:DANIEL Bazan
[2017-09-19] MEDS: POTASSIUM Cl (KCl) 40 MEQ in NS 1,000 ML IV SCH (00:40)
[2017-09-19] MEDS: LEVOTHYROXINE SODIUM 75 MCG PO SCH (04:09)
[2017-09-19] MEDS: ACETAMINOPHEN 325 MG TAB PO PRN ×2 (04:14→09:43)
[2017-09-19 04:48] LABS: PLATELET COUNT 224 10^3/uL (150-400)
--- NOTE | 2017-09-19 08:08 | SOAPPROG ---
SOAP Progress Note Assessment/Plan: Assessment: * s/p resection near obstructing mass transverse colon, path pending * H/O stage III breast cancer: currently KARUNA post op, some pain, quite alert, low grade temp last night Plan:Review path when available 09/18/17 07:28 09/19/17 08:06 Subjective: Some post op pain, better this am Objective: Vital Signs Temp Pulse Resp BP Pulse Ox 100.6 F 90 14 159/68 H 92 09/19/17 04:11 09/19/17 04:11 09/19/17 04:11 09/19/17 04:11 09/19/17 04:11 Laboratory Results 09/19/17 04:15 09/19/17 04:15 09/18/17 09/19/17 09/20/17 05:59 05:59 05:59 Intake Total 7 1975 Output Total 8230 1750 Balance -333 225 ICD10 Worksheet Patient Problems: Problems Problem Status Onset Bowel obstruction Acute Colonic mass Acute
[2017-09-19] MEDS: D5W 1/2 NS W/ 20 KCl/L 1,000 ML IV SCH ×2 (08:25→22:02)
--- NOTE | 2017-09-19 11:15 | HOSPPROG ---
Hospitalist Progress Note Assessment/Plan: 71 yo F w/ hx of hypothyroid and breast CA presents with abdominal pain and found to have large bowel obstruction from likely colonic mass. 1. Large bowel obstruction - From likely mass in the distal transverse colon per radiology. Notably this was not seen on CT A/P performed on 06/11. Wall thickening, edema, and free fluid adjacent to the proximal transverse colon is suspicious for focal ischemia and/or colitis. - Surgery consulted --> Colectomy 09/17 -->incarcerated LLQ Hernia, intraluminal mass of transverse colon - NPO, IVF - Oncology following 2. Mild to moderate biliary ductal dilatation - Incidentally found on CT on admission; LFTs not consistent w/ biliary obstruction noting normal bilirubin. This finding also mentioned on 06/11 scan so of unclear significance. 3. Indeterminate left adrenal nodule - CT or MRI for further evaluation when appropriate. 4. Hx of breast CA - Treated with mastectomy, radiation, and chemotherapy in 2000. 5. Hypothyroid - Continue patient's LTX 6. Hypokalemia, replacing in IV 7. Weakness and Debility? PT/OT 8. Hypernatremia, changing IVF to 1/2 NS Diet - NPO, mIVF w/ K Code - Full Ppx - SCDs Dispo: Inpatient Plan: IVF at 75 per hours Diet per surgery, currently NPO. Decrease IVF once tolerating good PO. She is having flatus Monitor for Fever Recheck Na and labs in a.m. Await Path Pain meds as ordered, nurse notified PT/OT Subjective: passing flatus. no cp or sob. no leg edema Objective: Vital Signs Temp Pulse Resp BP Pulse Ox 37.0 C 76 15 136/63 H 92 09/19/17 10:32 09/19/17 10:32 09/19/17 08:45 09/19/17 08:45 09/19/17 10:32 Laboratory Results 09/19/17 04:15 09/19/17 04:15 09/18/17 09/19/17 09/20/17 05:59 05:59 05:59 Intake Total 7 1975 652 Output Total 2400 1750 Balance -333 225 652 - Physical Exam Constitutional: no apparent distress Eyes: PERRL, EOMI Ears, Nose, Mouth, Throat: moist mucous membranes, hearing normal Cardiovascular: regular rate and rhythym Respiratory: no respiratory distress, no rales or rhonchi Gastrointestinal: distension Genitourinary: no bladder fullness Skin: warm Neurologic: AAOx3 Psychiatric: interacting appropriately, not anxious, not encephalopathic Lymph, Heme, Immunologic: No lymphadenopathy ICD10 Worksheet Patient Problems: Problems Problem Status Onset Bowel obstruction Acute Colonic mass Acute
[2017-09-19] MEDS: KETOROLAC 15 MG/1 ML SDV IVP PRN (11:57)
--- NOTE | 2017-09-19 12:48 | SOAPPROG ---
SOAP Progress Note Assessment/Plan: A/P: POD # 2 s/p transverse colectomy for near obstructing colon mass Neuro: Morphine 1-2 mg IV Q 1 hr prn pain. Febrile to 38.4. Only taking 325 mg Tylenol Resp - IS. Cough, Deep breath Cards - monitor for hemodynamic instability GI - Flatus, Awaiting bowel function to return FEN - Hypokalemia resolved. Hypernatremia. Changed IVF to D51/2 NS with 20 meq KCL @ 75 cc/hr. Clears - cautioned to limit Meds okay Please do not advance diet PT/OT - Bed for naps and nights. Subjective: Reports slept well, no nausea. Pasisng flatus O: General: Pleasant, well-nourished and well-groomed woman at bedside Lungs: Clear to auscultation bilaterally, No increased work of breathing Cardiac: Regular rate, L arm edema in sleeve. Right hand is edematous but less so than yesterday Abdomen: Bowel sounds hypoactive, soft and nontender. Slight distension. Incisions clean dry and intact 09/16/17 12:25 09/18/17 11:35 09/19/17 12:45 Objective: Vital Signs Temp Pulse Resp BP Pulse Ox 37.7 C 85 17 135/77 H 92 09/19/17 11:31 09/19/17 11:31 09/19/17 11:31 09/19/17 11:31 09/19/17 11:31 Laboratory Results 09/19/17 04:15 09/19/17 04:15 09/18/17 09/19/17 09/20/17 05:59 05:59 05:59 Intake Total 7 1975 652 Output Total 2400 1750 Balance -333 931 652 ICD10 Worksheet Patient Problems: Problems Problem Status Onset Bowel obstruction Acute Colonic mass Acute
[2017-09-20] MEDS: LEVOTHYROXINE SODIUM 75 MCG PO SCH (03:41)
[2017-09-20 05:00] LABS: PLATELET COUNT 186 10^3/uL (150-400)
--- NOTE | 2017-09-20 07:41 | GOP ---
[f rep st] OPERATIVE REPORT DATE OF OPERATION: 09/17/2017 SURGEON: Aida Yeboah MD FISH SALTER: Kira Duran, PIEDAD. ANESTHESIA: General. ANESTHESIOLOGIST: Peewee Cade MD. PREOPERATIVE DIAGNOSIS: 1. Transverse colon obstructive mass. 2. Ventral hernia. POSTOPERATIVE DIAGNOSIS: 1. Transverse colon obstructive mass. 2. Ventral hernia. PROCEDURE PERFORMED: Laparoscopic transverse colectomy and repair of left lower quadrant ventral her tigre with mobilization of splenic flexure. FINDINGS: Incarcerated left lower quadrant hernia, palpable intraluminal mass. INDICATIONS: The patient is a 71-year-old woman who presented to the emergency room with abdominal p ain. She has a remarkable history of 6 months of abdominal pain with extensive workup. At this time , she had a CT scan which showed a near obstructing mass. DESCRIPTION OF PROCEDURE: Patient was placed in the supine position and general anesthesia was admin istered. She was placed in lithotomy position. Her abdomen was prepped and draped in the usual ster ile fashion. I made an incision by her umbilicus. I elevated it. I inserted the Veress needle. It passed the hanging drop test. Her abdomen insufflated easily to a pressure of 15 mmHg. I placed a 5 mm trocar with a camera at this site. There were no injuries from Veress needle placement. She di d have the transverse colon adhered to the abdominal wall as well as along by the splenic flexure. I n the left lower quadrant, there was also a hernia containing fat and colon was very near it. Under direct vision, I placed 2 additional 5 mm trocars. I began reducing the hernia in the left lower quang drant. Next, I mobilized the splenic flexure. The peritoneum covering the splenic flexure was disse cted using electrocautery. The splenic colic ligament was divided. The distal transverse colon was dissected free from the stomach by freeing the greater omentum. I continued my dissection along to f ully mobilize the transverse colon. My dissection occurred on the descending colon, mobilizing the w joey line of Toldt. Once the bowel was completely free, I made an incision and I extracorporealized the bowel. The bowel appeared healthy. I could palpate a mass in the transverse colon. I selected my point of transection on the descending colon and the transverse colon. I divided the mesentery wi th the Harmonic Scalpel. I aligned the bowel on the antimesenteric borders. I created an enterotomy in each limb. I then passed a JENNIE 75 creating a [id number] functional end-to-end anastomosis. I closed the defect with 3-0 Vicryl followed by 3-0 Vicryl pop-offs. I returned the bowel to the abdom inal cavity. I placed a [place] drain and placed a trocar through the Deandre wound protector. I the n used a fascial closure device to close the hernia in the left lower quadrant with 0 Vicryl suture. The hernia defect appeared about 2 cm. The anastomosis was healthy. I placed a piece of AmnioFix o casimiro the staple line followed by omentum. There was no twisting or torsion. The ports removed under direct vision. I closed the fascia with #1 PDS. I closed skin with 3-0 Vicryl followed by 4-0 Monoc ryl. Dermabond applied. She was awakened in the operating room, extubated and transferred to PACU i n stable condition. /[id number]/MODL
[2017-09-20] MEDS ORDERED: POTASSIUM CL 20 MEQ TAB PO ONE (08:37)
--- NOTE | 2017-09-20 08:37 | HOSPPROG ---
Hospitalist Progress Note Assessment/Plan: #Transverse colonic mass -s/p transverse colectomy, ventral hernia repair (09/17). Path pending #Acute blood loss anemia: monitor closely #Constipation: +flatus. Surg wants to wait on bowel regimen #Hypothyroidism: LT4 #Left adrenal nodule: will need FU imaging #Hypokalemia: repleted #h/o breast cancer: no e/o disease #Diet: clears #DVT ppx: SCDs #Disp: cont inpatient admission for serial abd exams, electrolyte replacement Subjective: passing flatus. K pill hard to swallow. Tolerating ensure Objective: Vital Signs Temp Pulse Resp BP Pulse Ox 37.1 C 80 14 128/66 H 89 L 09/20/17 07:25 09/20/17 07:25 09/20/17 07:25 09/20/17 07:25 09/20/17 07:25 Laboratory Results 09/20/17 04:30 09/20/17 04:30 09/19/17 09/20/17 09/21/17 05:59 05:59 05:59 Intake Total 1975 1292 Output Total 1750 1000 Balance 225 292 - Physical Exam Constitutional: no apparent distress Eyes: PERRL Ears, Nose, Mouth, Throat: moist mucous membranes Cardiovascular: regular rate and rhythym, no murmur, rub, or gallop Respiratory: no respiratory distress, no rales or rhonchi Gastrointestinal: distension (soft), other (quiet BS. Surgical incisions CDI) Genitourinary: no bladder fullness Skin: warm Musculoskeletal: full muscle strength Neurologic: AAOx3, CN II-XII Intact Psychiatric: anxious ICD10 Worksheet Patient Problems: Problems Problem Status Onset Bowel obstruction Acute Colonic mass Acute
[2017-09-20] MEDS: KETOROLAC 15 MG/1 ML SDV IVP PRN (08:55)
--- NOTE | 2017-09-20 09:19 | SOAPPROG ---
SOAP Progress Note Assessment/Plan: Assessment/Plan: 71 yo woman w obstructing colon mass s/p transverse colectomy/ventral hernia repair (09/17) 1. colon mass final path pending POD #3 tolerating clears +flatus pain controlled 2. Constipation 3. Hypoxia - on O2 via NC spirometry 4. H/O Stage III breast ca - KARUNA 09/20/17 09:16 Subjective: Pt c/o constipation and bloating Objective: Vital Signs Temp Pulse Resp BP Pulse Ox 37.1 C 80 14 128/66 H 89 L 09/20/17 07:25 09/20/17 07:25 09/20/17 07:25 09/20/17 07:25 09/20/17 07:25 Laboratory Results 09/20/17 04:30 09/20/17 04:30 09/19/17 09/20/17 09/21/17 05:59 05:59 05:59 Intake Total 1975 1292 Output Total 1750 1000 Balance 225 292 Gen - NAD HEENT - anicteric CV - RRR Abd - soft, +distended, BS+ wounds c/d/i Ext - no sig edema ICD10 Worksheet Patient Problems: Problems Problem Status Onset Bowel obstruction Acute Colonic mass Acute
--- NOTE | 2017-09-20 09:31 | SOAPPROG ---
SOAP Progress Note Assessment/Plan: Assessment/Plan: 71yo F admitted with abdominal pain POD #3 s/p transverse colectomy for near obstructing colon mass Final pathology pending Neuro- Pain controlled with Toradol. Cards - Monitor for hemodynamic instability. Resp- wean supplemental O2 as tolerated, encouraged IS GI - Flatus, awaiting bowel function to return. Discussed holding off on stool softeners until more return of bowel function. FEN- Hypokalemia. Continue IVF. Continue clear liquid diet. PT/OT - Refer for inpatient lymphedema therapy. Encouraged ambulation, OOB. Dispo - continue inpatient until return of bowel function. Appreciate hospitalists and oncology S: Reports slept well, no nausea. Passing flatus. Concerned that she has not yet had a bowel movement and inquired about stool softeners. Reports that she has to remind herself to use the restroom as she does not feel the urge to urinate. O: General: Pleasant, well-nourished and well-groomed woman, NAD. Lungs: On O2 via nasal canula. No increased work of breathing Cardiac: L arm in compression sleeve. Both hands are edematous. Less edematous than yesterday Abdomen: Slight distension. Incisions clean dry and intact, hypoactive bowel sounds throughout. nontender to palpation Psych: Anxious. Normal affect. Objective: Vital Signs Temp Pulse Resp BP Pulse Ox 37.1 C 80 14 128/66 H 89 L 09/20/17 07:25 09/20/17 07:25 09/20/17 07:25 09/20/17 07:25 09/20/17 07:25 Laboratory Results 09/20/17 04:30 09/20/17 04:30 09/19/17 09/20/17 09/21/17 05:59 05:59 05:59 Intake Total 1975 1292 Output Total 1750 1000 Balance 225 292 ICD10 Worksheet Patient Problems: Problems Problem Status Onset Bowel obstruction Acute Colonic mass Acute
[2017-09-20] MEDS: ONDANSETRON DISINTEGRATING 4 MG TAB PO PRN ×2 (09:52→19:42)
[2017-09-20] MEDS: D5W 1/2 NS W/ 20 KCl/L 1,000 ML IV SCH ×2 (11:17→23:57)
--- NOTE | 2017-09-20 17:03 | ASMTCMCOM ---
CM Note CM Note Notes: PT/OT recommending home care for patient. Follow-up tomorrow to see which agency patient would like to use. CM will follow. Date Signed: 09/20/2017 05:03 PM Electronically Signed By:Aixa Jauregui LCSW
[2017-09-20] MEDS: ACETAMINOPHEN 325 MG TAB PO PRN (17:54)
[2017-09-21] MEDS: LEVOTHYROXINE SODIUM 75 MCG PO SCH (04:46)
[2017-09-21] MEDS ORDERED: oxyCODONE IR 5 MG TAB PO PRN (09:17)
[2017-09-21] MEDS ORDERED: LORazepam 0.5 MG TAB PO PRN (09:39)
--- NOTE | 2017-09-21 09:51 | SOAPPROG ---
SOAP Progress Note Assessment/Plan: Assessment/Plan: 71yo F admitted with abdominal pain POD #4 s/p transverse colectomy for near obstructing colon mass Final pathology pending Neuro- Patient reports "neurologic symptoms" with Toradol and prefers Oxycodone for pain relief. Cards - Monitor for hemodynamic instability. Resp- wean supplemental O2 as tolerated, encouraged IS GI - Flatus, has had two BMs this morning. FEN- Hypokalemia. Continue IVF. Regular diet. PT/OT - LUE and bilateral hand swelling much improved today following lymphedema therapy yesterday. Encouraged ambulation, OOB. Dispo - Discussed potential to discharge home tomorrow. Appreciate hospitalists and oncology S: Passing flatus and stool. Urge to urinate has returned. Is requesting Ativan to sleep. O: General: Pleasant, well-nourished and well-groomed woman, NAD. Lungs: Clear to auscultation bilaterally. On O2 via nasal canula. No increased work of breathing Cardiac: RRR. No murmurs, rubs or gallops. L arm in compression sleeve. Both hands are edematous. Less edematous than yesterday. Abdomen: Minimal distension. Incisions clean dry and intact, hypoactive bowel sounds throughout. Nontender to palpation Psych: Anxious regarding possibility of discharge. Normal affect. 09/21/17 09:44 Objective: Vital Signs Temp Pulse Resp BP Pulse Ox 37.1 C 72 18 146/75 H 94 09/21/17 08:00 09/21/17 08:00 09/21/17 08:00 09/21/17 08:00 09/21/17 08:00 Laboratory Results 09/21/17 05:16 09/21/17 05:16 09/20/17 09/21/17 09/22/17 05:59 05:59 05:59 Intake Total 1292 3136 Output Total 1000 2570 Balance 292 566 ICD10 Worksheet Patient Problems: Problems Problem Status Onset Bowel obstruction Acute Colonic mass Acute
--- NOTE | 2017-09-21 09:52 | SOAPPROG ---
SOAP Progress Note Assessment/Plan: A/P: POD # 4 s/p transverse colectomy for near obstructing colon mass Neuro: Morphine 1-2 mg IV Q 1 hr prn pain. Ativan prn. Oxy IR prn Resp - IS. Cough, Deep breath. Wean O2 as appropriate Cards - monitor for hemodynamic instability GI - Having bowel movements FEN - Regular diet. DC IVF. Hypokalemia PT/OT - Bed for naps and nights. Subjective: BM, some abdominal pain with coughing O: General: Pleasant, well-nourished and well-groomed woman Lungs: Clear to auscultation bilaterally, No increased work of breathing Cardiac: Regular rate, L arm edema in sleeve. Right hand is no longer edematous Abdomen: Bowel sounds present, soft and nontender. Slight distension. Incisions clean dry and intact 09/16/17 12:25 09/18/17 11:35 09/19/17 12:45 09/21/17 09:50 Objective: Vital Signs Temp Pulse Resp BP Pulse Ox 37.1 C 72 18 146/75 H 94 09/21/17 08:00 09/21/17 08:00 09/21/17 08:00 09/21/17 08:00 09/21/17 08:00 Laboratory Results 09/21/17 05:16 09/21/17 05:16 09/20/17 09/21/17 09/22/17 05:59 05:59 05:59 Intake Total 1292 3136 Output Total 1000 2570 Balance 292 566 ICD10 Worksheet Patient Problems: Problems Problem Status Onset Bowel obstruction Acute Colonic mass Acute
--- NOTE | 2017-09-21 10:58 | ASMTCMCOM ---
CM Note CM Note Notes: Chart reviewed. Met with patient to review d/c plan of care. I have provided her with a list a providers for HHC that has been recommended. She is somewhat hesitant about HHC. I will revisit with her once her is here this afternoon. CM to follow. Date Signed: 09/21/2017 10:57 AM Electronically Signed By:Brenna Butler RN
[2017-09-21] MEDS ORDERED: POTASSIUM Cl (KCl) 100 ML IV SCH (11:15)
--- NOTE | 2017-09-21 11:17 | HOSPPROG ---
Hospitalist Progress Note Assessment/Plan: #Transverse colonic mass -s/p transverse colectomy, ventral hernia repair (09/17). Path pending -had BM; regular diet #Normocytic anemia: no black/bloody stools. H/H stable #Constipation: +flatus. Surg wants to wait on bowel regimen #Hypothyroidism: LT4 #Left adrenal nodule: will need FU imaging #Hypokalemia: repleting with IV; didn't tolerate oral replacement yesterday #h/o breast cancer: no e/o disease #Deconditioning: home with walker and PT #Diet: regular #DVT ppx: SCDs #Disp: cont inpatient admission for serial abd exams, electrolyte replacement. Hopeful to DC in next 1-2 days Subjective: large BM this morning Objective: Vital Signs Temp Pulse Resp BP Pulse Ox 37.1 C 72 18 146/75 H 94 09/21/17 08:00 09/21/17 08:00 09/21/17 08:00 09/21/17 08:00 09/21/17 08:00 Laboratory Results 09/21/17 05:16 09/21/17 05:16 09/20/17 09/21/17 09/22/17 05:59 05:59 05:59 Intake Total 1292 3136 Output Total 1000 2570 Balance 292 566 - Time Spent With Patient Time Spent with Patient: greater than 35 minutes Time Spent with Patient: Greater than 35 minutes spent on this patients care, greater than 50% of time spent counseling, educating, and coordinating care regarding the above mentioned plan. - Physical Exam Constitutional: no apparent distress Eyes: PERRL Ears, Nose, Mouth, Throat: moist mucous membranes, hearing normal Cardiovascular: regular rate and rhythym, no murmur, rub, or gallop Respiratory: no respiratory distress Gastrointestinal: distension, other (soft, BS present. Surgical incisions healing well) Genitourinary: no bladder fullness Skin: warm Musculoskeletal: full muscle strength Neurologic: AAOx3 ICD10 Worksheet Patient Problems: Problems Problem Status Onset Bowel obstruction Acute Colonic mass Acute
[2017-09-21] MEDS: CEPACOL LOZENGE PO PRN ×2 (11:45→16:29)
[2017-09-21] MEDS ORDERED: POTASSIUM Cl (KCl) 10 MEQ in D5W 100 ML IV SCH (12:00)
[2017-09-21] MEDS: POTASSIUM Cl (KCl) 10 MEQ in NS 100 ML IV SCH ×3 (12:36→15:43)
--- NOTE | 2017-09-21 12:40 | SOAPPROG ---
SOAP Progress Note Assessment/Plan: Assessment/Plan: 71 yo woman w obstructing colon mass s/p transverse colectomy/ventral hernia repair (09/17) 1. colon mass final path still pending for adjuvant therapy recommendations POD #4 tolerating advanced diet +flatus and BM pain controlled 2. Constipation - s/p BM 3. Hypoxia - on O2 via NC spirometry 4. H/O Stage III breast ca - KARUNA Pt and had a lot of questions today spend more than 30min, more than 50% of time coordinating care discussed w Dr Diaz 09/21/17 12:40 Subjective: No acute events no SOB +BM eating and pain controlled Objective: Vital Signs Temp Pulse Resp BP Pulse Ox 36.9 C 68 18 142/71 H 95 09/21/17 11:43 09/21/17 11:43 09/21/17 11:43 09/21/17 11:43 09/21/17 11:43 Laboratory Results 09/21/17 05:16 09/21/17 05:16 09/20/17 09/21/17 09/22/17 05:59 05:59 05:59 Intake Total 1292 3136 Output Total 1000 2570 550 Balance 292 566 -550 Gen - NAD HEENT - anicteric CV - RRR Abd - soft, BS+ ext - no sig edema ICD10 Worksheet Patient Problems: Problems Problem Status Onset Bowel obstruction Acute Colonic mass Acute
[2017-09-21] MEDS: ONDANSETRON DISINTEGRATING 4 MG TAB PO PRN (12:57)
[2017-09-22] MEDS: ONDANSETRON DISINTEGRATING 4 MG TAB PO PRN ×2 (00:59→12:22)
[2017-09-22] MEDS: LEVOTHYROXINE SODIUM 75 MCG PO SCH (06:20)
[2017-09-22] MEDS ORDERED: PROTOCOL POTASSIUM 1 DOSE MISC PRN (08:25)
[2017-09-22] MEDS ORDERED: POTASSIUM Cl (KCl) 100 ML IV SCH (08:30)
[2017-09-22] MEDS ORDERED: POTASSIUM Cl (KCl) 10 MEQ in NS 100 ML IV SCH (09:00)
[2017-09-22] MEDS: CEPACOL LOZENGE PO PRN ×2 (09:19→22:29)
[2017-09-22] MEDS: ENOXAPARIN 40 MG/0.4 ML SYR SC SCH (09:26)
--- NOTE | 2017-09-22 09:34 | HOSPPROG ---
Hospitalist Progress Note Assessment/Plan: #Transverse colonic mass -s/p transverse colectomy, ventral hernia repair (09/17). Path pending -had BM; regular diet #Nausea: no emesis. Tolerating PO #Normocytic anemia: no black/bloody stools. H/H stable #Constipation: +flatus. Surg wants to wait on bowel regimen #Hypothyroidism: LT4 #Left adrenal nodule: will need FU imaging #Hypokalemia: repleting. Will [place] need Rx at DC #h/o breast cancer: no e/o disease #Deconditioning: home with walker and PT #Diet: regular #DVT ppx: SCDs #Disp: had lengthy conversation with patient. Plan for DC tomorrow with and home care. Subjective: sweats and nausea. Eating more today Objective: Vital Signs Temp Pulse Resp BP Pulse Ox 37.3 C 71 18 156/79 H 85 L 09/22/17 08:25 09/22/17 08:25 09/22/17 08:25 09/22/17 08:25 09/22/17 09:20 Laboratory Results 09/22/17 04:13 09/22/17 04:13 09/21/17 09/22/17 09/23/17 05:59 05:59 05:59 Intake Total 3136 920 Output Total 2570 2550 900 Balance 566 -3410 -900 - Physical Exam Constitutional: no apparent distress Eyes: PERRL Ears, Nose, Mouth, Throat: moist mucous membranes Cardiovascular: regular rate and rhythym, no murmur, rub, or gallop Respiratory: no respiratory distress Gastrointestinal: normoactive bowel sounds, distension (less distension, +BS) Genitourinary: no bladder fullness Skin: warm Musculoskeletal: full muscle strength Neurologic: AAOx3, CN II-XII Intact Psychiatric: anxious ICD10 Worksheet Patient Problems: Problems Problem Status Onset Bowel obstruction Acute Colonic mass Acute
[2017-09-22] MEDS ORDERED: POTASSIUM CL 10 MEQ TAB PO ONE (09:45)
--- NOTE | 2017-09-22 11:45 | SOAPPROG ---
SOAP Progress Note Assessment/Plan: A/P: s/p transverse colectomy for near obstructing colon mass Neuro: Morphine 1-2 mg IV Q 1 hr prn pain. Ativan prn. Oxy IR prn Resp - IS. Cough, Deep breath. Wean O2 as appropriate Cards - monitor for hemodynamic instability GI - Having bowel movements FEN - Regular diet. Hypokalemia PT/OT - using walk Subjective: BM, some abdominal pain with coughing O: General: Pleasant, well-nourished and well-groomed woman Lungs: Clear to auscultation bilaterally, No increased work of breathing Cardiac: Regular rate, L arm edema in sleeve. Right hand is no longer edematous Abdomen: Bowel sounds present, soft and nontender. Incisions clean dry and intact 09/16/17 12:25 09/18/17 11:35 09/19/17 12:45 09/21/17 09:50 09/22/17 11:44 Objective: Vital Signs Temp Pulse Resp BP Pulse Ox 37.3 C 71 18 156/79 H 85 L 09/22/17 08:25 09/22/17 08:25 09/22/17 08:25 09/22/17 08:25 09/22/17 09:20 Laboratory Results 09/22/17 04:13 09/22/17 04:13 09/21/17 09/22/17 09/23/17 05:59 05:59 05:59 Intake Total 3136 920 Output Total 7860 2550 900 Balance 560 -2297 -900 ICD10 Worksheet Patient Problems: Problems Problem Status Onset Bowel obstruction Acute Colonic mass Acute
[2017-09-22] MEDS ORDERED: [UNRECOGNIZED DRUG - OTHER] PO PRN (13:22)
--- NOTE | 2017-09-22 15:55 | ASMTCMCOM ---
CM Note CM Note Notes: Met with pt and to discuss DC plan. pt may be ready for DC tomorrow. [facility] had been recommended for PT. They are also interested in an RN but feel they don't yet know what the care needs will be at home. is confident that he can provide the majority of pt's care at home, but wants detailed DC instructions. [facility] alerted. Date Signed: 09/22/2017 03:55 PM Electronically Signed By:Elizabeth Dao LCSW
[2017-09-23] MEDS: LEVOTHYROXINE SODIUM 75 MCG PO SCH (05:05)
[2017-09-23] MEDS ORDERED: POTASSIUM CL 20 MEQ TAB PO ONE (08:07)
--- NOTE | 2017-09-23 09:40 | SOAPPROG ---
SOAP Progress Note Assessment/Plan: A/P: s/p transverse colectomy for stage IIIb colon cancer Neuro: Tylenol GI - Having bowel movements FEN - Regular diet. Hypokalemia PT/OT - using walker F/U with me in [address] Mccarthy outpatient Subjective: BM, feeling better O: General: Pleasant, well-nourished and well-groomed woman Lungs: Clear to auscultation bilaterally, No increased work of breathing Cardiac: Regular rate, L arm edema in sleeve. Right hand is no longer edematous Abdomen: Bowel sounds present, soft and nontender. Incisions clean dry and intact 09/16/17 12:25 09/18/17 11:35 09/19/17 12:45 09/21/17 09:50 09/22/17 11:44 09/23/17 09:38 Objective: Vital Signs Temp Pulse Resp BP Pulse Ox 37.2 C 76 18 148/75 H 92 09/23/17 07:58 09/23/17 07:58 09/23/17 07:58 09/23/17 07:58 09/23/17 07:58 Laboratory Results 09/22/17 04:13 09/23/17 04:18 09/22/17 09/23/17 09/24/17 05:59 05:59 05:59 Intake Total 920 1250 Output Total 2550 3300 600 Balance -1630 -2049 -600 ICD10 Worksheet Patient Problems: Problems Problem Status Onset Bowel obstruction Acute Colonic mass Acute
[2017-09-23] MEDS: ENOXAPARIN 40 MG/0.4 ML SYR SC SCH (10:19)
--- NOTE | 2017-09-23 11:26 | PDIAF ---
- Diagnosis Diagnosis: bowel obstruction Code Status: Full Code - Medication Management Discharge Medications: Medications to Continue on Transfer Levothyroxine Sodium [Tirosint] 75 mcg PO DAILY 09/14/17 [Last Taken 09/14/17] Carboxymethylcellulose 1% [Refresh Celluvisc (*)] 1 howie EACHEYE Q1 PRN 09/15/17 [Last Taken Unknown] Herbals/Supplements -Info Only 1 ea PO DAILY 09/15/17 [Last Taken 09/14/17] Multivitamins [Multivitamin (*)] 1 each PO DAILY 09/15/17 [Last Taken 09/14/17] Temazepam [Restoril 15 MG (*)] 15 mg PO HSPRN PRN 09/15/17 [Last Taken Unknown] Doxycycline Hyclate 100 mg PO BID #10 tablet 09/23/17 [Last Taken Unknown] Ondansetron Odt [Zofran Odt 4 mg (*)] 4 mg PO Q4HRS PRN #30 tab 09/23/17 [Last Taken Unknown] Discharge Medications: Refer to the Discharge Home Medication list for PRN reason. - Orders Services needed: Home Care, Registered Nurse, Physical Therapy, Occupational Therapy Home Care Face to Face: I certify that this patient was under my care and that I had the required [id number] encounter meeting the encounter requirements on the discharge day. My findings support the fact that the patient is homebound as defined in Home Care Face to Face Continued: CMS Chapter 7 Medicare Benefits Manual 30.1.1 , The condition of the patient is such that there exists a normal inability to leave home and consequently, leaving home would require a considerable and taxing effort. Diet Recommendation: other (advance diet as tolerated. Eat potassium-rich foods) - Labs/Radiology BMP Date: 10/04/17 - Follow Up Care Current Providers and Referrals: Lili Mccarthy MD [Medical Doctor] - (call to make an appointment) Faby Mcclelland MD [Primary Care Provider] - As per Instructions Aida Yeboah MD [Medical Doctor] - 10/07/17 1:30 pm
--- NOTE | 2017-09-23 12:23 | PDHOMEO2F ---
Home Oxygen Face to Face Home Orders: I certify that a physician or a nurse practitioner or physician's insurance account assistant has had a [id number] encounter with this patient on the date of this order due to the diagnosis listed, which relates to the primary reason the patient requires home oxygen. Alternative treatments have been tried, or considered, and deemed ineffective. It is anticipated that supplemental oxygen will result in improvement with treatment. Home oxygen qualifying diagnosis: hypoxia SpO2 on room air (%): 85 Frequency of home oxygen needed: continuous Home oxygen liters per minute: 2 Home oxygen delivery device: nasal cannula Concentrator: Yes E-tanks for mobility and back up: Yes If ordering portable O2, is the patient mobile in the home?: Yes I certify that, based on these findings, the home oxygen is medically necessary for this patient for the following length of time. Length of time home oxygen needed: 1 month
[2017-09-23 12:25] VITALS: BP 137/70; PULSE 85; RESP 20; TEMP 98.9; O2SAT 79
--- NOTE | 2017-09-23 12:34 | ASMTCMCOM ---
CM Note CM Note Notes: Pt ready for DC today. Pt will use [facility] for RN, PT and OT. Pt's street address is [address] [place] [id number]. Date Signed: 09/23/2017 12:33 PM Electronically Signed By:Elizabeth Dao LCSW
--- NOTE | 2017-09-23 14:59 | GDS ---
[f rep st] DISCHARGE SUMMARY DISCHARGE DIAGNOSIS: 1. Acute hypoxic respiratory failure. 2. Stage IIIB colonic adenocarcinoma. 3. Transverse colonic mass, secondary malignancy, status post colectomy, ventral hernia repair, 09/17. 4. Nausea. 5. Normocytic anemia. 6. Constipation. 7. Hypothyroidism. 8. Left adrenal nodule. 9. Hypokalemia. 10. Deconditioning. 11. Left index finger cellulitis. PROCEDURES: Transverse colectomy and repair of left lower quadrant ventral hernia, 09/17, by Dr. Yeboah. HISTORY OF PRESENT ILLNESS: 71-year-old female with history of hypothyroidism and treated breast cancer, presenting with abdominal pain. This was 3 days prior to admission and migrated to the right lower quadrant and increased in severity. She reported normal colonoscopy 8 years ago and had a significant GI workup recently due to pain. This included right upper quadrant ultrasound, EUS , and CT abdomen/pelvis. Notable, CT abdomen and pelvis May 2017 had no evidence of current issues. 1. Stage IIIB adenocarcinoma: diagnosed on this stay when presented with transverse colon mass that was resected by Dr. Yeboah on 09/17. Will be followed by Oncology as an outpatient. Tolerating a regular diet and having bowel movements. 2. Acute hypoxic respiratory failure: Secondary to atelectasis and shallow breaths with abdominal surgery. She will be discharged on oxygen. 3. Constipation: Is now tolerating p.o. 4. Hypothyroidism: Levothyroxine. 5. Left adrenal nodule: Will need followup imaging. 6. Hypokalemia: She has required aggressive repletion here. I recommend a prescription at discharge, but she declined. I advised her the risks of arrhythmia, possible , and she acknowledged these and still declined. 7. History of breast cancer status post treatment. No evidence of current disease. 8. Deconditioning: Will be discharged home with PT, OT, and home nurse. 9. Normocytic anemia: H and H stable. 10. Left index finger cellulitis: She noted pain and tenderness on day of discharge. She is currently afebrile. We will treat with 5 days of doxycycline. 11. Patient is stable for discharge home with her . Will provide home services including nurse, PT, OT. FOLLOWUP: 1. Dr. Mccarthy. 2. Dr. Mcclelland. 3. Dr. Yeboah. 4. BMP. PHYSICAL EXAMINATION: VITAL SIGNS: Today, temperature 37.2, blood pressure 130 /70, heart rate in the 80s, respiratory rate 20, 79% on room air, 92% on 2 L. GENERAL: Brighter appearing, sitting up and eating breakfast. HEENT: PERRLA. EOMI. Moist mucous membranes. CV: Regular rate and rhythm. No murmurs, gallops, or rubs. LUNGS: Clear. ABDOMEN: Soft, nontender. Positive bowel sounds. : No Ricks. MUSCULOSKELETAL: Moving all 4 extremities. NEUROLOGIC : 2-12 intact. PSYCH: Alert, oriented, anxious. Time spent on discharge, 50 minutes. Coordinating followup plan and discussing antibiotics for cellulitis and electrolyte derangements with the patient. /[id number]/MODL MTDD
== END 2017-09-23 16:23 | disposition home or self-care (01) | DRG 329 ==
LOC: F1N 09-15 01:30 → OBSVTOIN 09-15 15:19
PROVIDERS: ADMIT Student in an Organized Health Care Education/Training Program; ATTEND Student in an Organized Health Care Education/Training Program
PROC: 0WQF4ZZ Repair Abdominal Wall, Percutaneous Endoscopic Approach (ICD-10-PCS; principal; 2017-09-17 14:00)
PROC: 0DTL4ZZ Resection of Transverse Colon, Percutaneous Endoscopic Approach (ICD-10-PCS; principal; 2017-09-17 14:00)
DX: C18.4 Malignant neoplasm of transverse colon (principal); K43.6 Other and unspecified ventral hernia with obstruction, without gangrene; J96.01 Acute respiratory failure with hypoxia; J98.11 Atelectasis; D64.9 Anemia, unspecified; E87.6 Hypokalemia; E87.0 Hyperosmolality and hypernatremia; L03.012 Cellulitis of left finger; E27.8 Other specified disorders of adrenal gland; K59.00 Constipation, unspecified; E03.9 Hypothyroidism, unspecified; Z92.3 Personal history of irradiation; Z85.3 Personal history of malignant neoplasm of breast
CPT/HCPCS: 97110-GP; 97116-GP; 97161-GP; 97165-GO; 97530-GO; 97530-GP; 97535-GO; C9399; G8978-GP-CJ; G8979-GP-CI; G8987-GO-CM; G8988-GO-CJ; G8989-GO-CJ; J1100; J1650; J1885; J1956; J2001; J2250; J2270; J2370; J2405; J2704; J3480; Q9967

== ENCOUNTER 2017-10-15 08:34 | Day surgery (SDC) | payer OTHER ==
[~2017-10-15 08:34] MED LIST: VANCOMYCIN 750 MG in NS 150 ML IV ONE; VANCOMYCIN PHARMACY TO DOSE MISC ONE
[2017-10-15] MEDS ORDERED: LIDOCAINE 1% 2 ML INJ ID PRN (08:57)
[2017-10-15] MEDS ORDERED: LR 1,000 ML IV ONE (08:57)
[2017-10-15] MEDS ORDERED: LIDOCAINE 1% 2 ML INJ ONE (09:10)
--- NOTE | 2017-10-15 09:10 | PDHPUP ---
History & Physical Update H&P update statement: This history and physical update is based on an assessment of the patient which was completed after admission or registration (within 24 hours), but prior to the surgery/procedure. H&P update: H&P reviewed & patient examined, no change in patient's condition since H&P completed
[2017-10-15] MEDS ORDERED: BUPIVACAINE 0.5% 30 ML SDV ONE (09:37)
[2017-10-15] MEDS ORDERED: ONDANSETRON 4 MG/2 ML VIAL IVP ONE (10:15)
[2017-10-15] MEDS ORDERED: MIDAZOLAM 2 MG/2 ML VIAL IVP ONE (11:30)
--- NOTE | 2017-10-15 11:30 | PDANEPAE ---
ANE Past Medical History - Cardiovascular History Hx Hypertension: No Hx Arrhythmias: No Hx Chest Pain: No Hx Coronary Artery / Peripheral Vascular Disease: No Hx CHF / Valvular Disease: No Hx Palpitations: No - Pulmonary History Hx COPD: No Hx Asthma/Reactive Airway Disease: No Hx Recent Upper Respiratory Infection: No Hx Oxygen in Use at Home: No Hx Sleep Apnea: No Sleep Apnea Screening Result - Last Documented: Negative Pulmonary History Comment: scar on lung from radiation. CT shows possible lymph node issue. has not yet been addressed - Neurologic History Hx Cerebrovascular Accident: No Hx Seizures: No Hx Dementia: No - Endocrine History Hx Diabetes: No - Renal History Hx Renal Disorders: No - Liver History Hx Hepatic Disorders: No - Neurological & Psychiatric Hx Hx Neurological and Psychiatric Disorders: No Neurological / Psychiatric History Comment: anxiety, ADHD - Cancer History Hx Cancer: Yes Cancer History Comment: breast, colon - Congenital Disorder History Hx Congenital Disorders: No - GI History Hx Gastrointestinal Disorders: Yes Gastrointestinal History Comment: lactose intolerant. colon cancer. polyps - Other Health History Other Health History: anemia. deviated septum. bilat vitreous seperation. cataract to right eye. spinal schwanomas lower L2, upper L3 - Chronic Pain History Chronic Pain: No - Surgical History Prior Surgeries: abdominal resection. Bilat mastectomy lymph removal on left ANE Review of Systems Review of Systems: - Exercise capacity METS (RN): 3 METS ANE Patient History - Allergies Allergies/Adverse Reactions: penicillamine Allergy (Severe, Verified 09/17/17 09:13) Anaphylaxis Sulfa (Sulfonamide Antibiotics) Allergy (Severe, Verified 09/17/17 09:13) Anaphylaxis Proton Pump Inhibitors Allergy (Intermediate, Verified 10/08/17 17:29) Other-Enter Comments fentanyl Allergy (Mild, Verified 10/08/17 17:19) Other-Enter Comments lactose Allergy (Mild, Verified 10/08/17 17:30) Other-Enter Comments - Home Medications Home Medications: Levothyroxine Sodium [Tirosint] 09/14/17 [Last Taken 10/14/17] Carboxymethylcellulose 1% [Refresh Celluvisc (*)] 09/15/17 [Last Taken Unknown] Herbals/Supplements -Info Only 09/15/17 [Last Taken 10/14/17] Multivitamins [Multivitamin (*)] 09/15/17 [Last Taken 10/14/17] Temazepam [Restoril 15 MG (*)] 09/15/17 [Last Taken 09/30/17] Doxycycline Hyclate 10/08/17 [Last Taken 09/30/17] Lorazepam 10/08/17 [Last Taken 09/30/17] Ondansetron Odt [Zofran Odt 4 mg (*)] 10/08/17 [Last Taken 09/30/17] - NPO status NPO Since - Liquids (Date): 10/15/17 NPO Since - Liquids (Time): 01:30 NPO Since - Solids (Date): 10/14/17 NPO Since - Solids (Time): 21:00 - Smoking Hx Smoking Status: Never smoked - Family Anes Hx Family Hx Anesthesia Complications: none ANE Labs/Vital Signs - Vital Signs Blood Pressure: 172/92 Heart Rate: 86 Respiratory Rate: 15 O2 Sat (%): 99 Height: 161.29 cm Weight: 54.431 kg ANE Physical Exam - Airway Neck exam: FROM Mallampati Score: Class 2 Mouth exam: normal dental/mouth exam - Pulmonary Pulmonary: no respiratory distress - Cardiovascular Cardiovascular: regular rate and rhythym - ASA Status ASA Status: II ANE Anesthesia Plan Total IV Anesthesia: Yes
[2017-10-15] MEDS ORDERED: PROPOFOL/EMULSION 500 MG/50 ML BOTTLE IV ONE (11:38)
[2017-10-15] MEDS ORDERED: LIDOCAINE 2% 100 MG/5 ML SYR ONE (11:40)
[2017-10-15] MEDS ORDERED: NALOXONE HCL 0.4 MG/ML INJ IVP PRN (12:36)
[2017-10-15] MEDS ORDERED: ONDANSETRON 4 MG/2 ML VIAL IVP PRN (12:36)
--- NOTE | 2017-10-15 12:36 | POSTANESTH ---
Post Anesthetic Evaluation Cardiovascular Status: Similar to Pre-Op Cond Respiratory Status: Similar to Pre-op Cond. Level of Consciousness/Mental Status: Alert and Oriented Pain Control: Adequate, Prn Tx Ordered Nausea/Vomiting Control: Adequate, Prn Tx Ordered Complications Possibly Related to Anesthesia: None Noted
--- NOTE | 2017-10-15 12:43 | POSTOPPROG ---
Post Op Note Date of Operation: 10/15/17 Surgeon: Aida Yeboah Anesthesiologist: brian Anesthesia: GET(General Endotracheal) Pre-op Diagnosis: Colon cancer Post-op Diagnosis: same Indication: 72yo F with colon cancer who requries IV access for chemo Procedure: R IJ power port placement Findings: none unusual Inf/Abcess present in the surg proc area at time of surgery?: No EBL: Minimal Complications: none immediately postop Specimen(s): none
[2017-10-15 12:48] VITALS: TEMP 97.9
[2017-10-15] MEDS ORDERED: ONDANSETRON 4 MG/2 ML VIAL ONE (12:50)
[2017-10-15 13:04] VITALS: O2SAT 97
[2017-10-15 13:36] VITALS: BP 165/80; PULSE 67; RESP 14
--- NOTE | 2017-10-17 09:13 | GOP ---
[f rep st] OPERATIVE REPORT DATE OF OPERATION: 10/15/2017 SURGEON: Aida Yeboah MD ANESTHESIA: General. ANESTHESIOLOGIST: Dr. Jv Wayne. PREOPERATIVE DIAGNOSIS: Colon cancer. POSTOPERATIVE DIAGNOSIS: Colon cancer. PROCEDURE PERFORMED: Right ultrasound-guided internal jugular PowerPort placement. FINDINGS: No unusual findings. ESTIMATED BLOOD LOSS: Minimal. INDICATIONS: The patient is a 72-year-old recently diagnosed with colon cancer and will require port placement for chemotherapy. DESCRIPTION OF PROCEDURE: Patient was brought into the operating room, placed supine on the table, a nd anesthesia was administered. Bilateral neck and chest were prepped and draped in the usual steril e fashion. She was placed in the Trendelenburg position. I used ultrasound to identify her right in ternal jugular vein. I accessed this with a large-bore needle with dark return of blood flow. I thr eaded the guidewire and removed the needle. I created a pocket to accommodate the port in the right chest in a place that the patient and I had identified preoperatively. I tunneled the catheter up to the insertion site. Under fluoroscopy, I measured the catheter and cut it to size. Using the Seldi nger technique, I placed the dilator and sheath over the wire. I removed the wire and the dilator. I threaded the catheter through the sheath and peeled away the sheath. Placement was confirmed with fluoroscopy. The port withdrew blood easily and was flushed with heparin. The pocket was closed wit h 3-0 Vicryl, followed by 4-0 Monocryl. Dermabond applied. She was awakened in the operating room, transferred to PACU in stable condition. /[id number]/MODL
== END 2017-10-15 14:53 | disposition home or self-care (01) ==
LOC: FSGY 08:34
PROVIDERS: ATTEND Surgery
PROC: 02HV33Z Insertion of Infusion Device into Superior Vena Cava, Percutaneous Approach (ICD-10-PCS; principal; 2017-10-15 10:15)
PROC: 0JH60XZ Insertion of Tunneled Vascular Access Device into Chest Subcutaneous Tissue and Fascia, Open Approach (ICD-10-PCS; principal; 2017-10-15 10:15)
DX: C18.4 Malignant neoplasm of transverse colon (principal); E03.9 Hypothyroidism, unspecified; Z88.0 Allergy status to penicillin; Z88.2 Allergy status to sulfonamides
CPT/HCPCS: C1788; J1642; J2001; J2250; J2270; J2405; J2704; J3370

== ENCOUNTER → 2018-05-05 | Outpatient (CLI) | payer OTHER | LOC: FIMAGING 14:48 | PROVIDERS: ATTEND Internal Medicine Hematology & Oncology | DX: Z12.31 Encounter for screening mammogram for malignant neoplasm of breast (principal); Z85.3 Personal history of malignant neoplasm of breast; Z90.11 Acquired absence of right breast and nipple ==

== ENCOUNTER → 2018-06-29 | Outpatient (CLI) | payer OTHER ==
[~2018-06-29] MED LIST changes: +IOPAMIDOL (ISOVUE-300) 100 ML BTL ONE; -VANCOMYCIN 750 MG in NS 150 ML IV ONE; -VANCOMYCIN PHARMACY TO DOSE MISC ONE
== END ==
LOC: FIMAGING 13:04
PROVIDERS: ATTEND Internal Medicine Hematology & Oncology
DX: E27.9 Disorder of adrenal gland, unspecified (principal); R59.1 Generalized enlarged lymph nodes; C18.9 Malignant neoplasm of colon, unspecified; Z85.3 Personal history of malignant neoplasm of breast
CPT/HCPCS: 71260; 74177; J1642; Q9967

== ENCOUNTER → 2018-12-28 | Outpatient (CLI) | payer OTHER | LOC: FIMAGING 15:37 ==